=== PATIENT | male | born 1955 | race Caucasian/White ===

== ENCOUNTER → 2019-03-18 10:04 | Outpatient (BNVA) | payer MEDICARE, SELFPAY | PROVIDERS: Family Provider Family Medicine; PCP Family Medicine; Visit Provider Nurse Practitioner Family | DX: E11.9 Type 2 diabetes mellitus without complications (principal); K11.1 Hypertrophy of salivary gland | CPT/HCPCS: 36416; 83036 ==

== ENCOUNTER → 2019-09-21 09:48 | Outpatient (BNVA) | payer MEDICARE, SELFPAY | PROVIDERS: Family Provider Family Medicine; PCP Family Medicine; Visit Provider Nurse Practitioner Family | DX: E11.9 Type 2 diabetes mellitus without complications (principal); J44.9 Chronic obstructive pulmonary disease, unspecified | CPT/HCPCS: 80053; 80061; 83036 ==

== ENCOUNTER → 2019-09-26 09:00 | Outpatient (BNVA) | payer MEDICARE, SELFPAY | PROVIDERS: Family Provider Family Medicine; PCP Family Medicine; Visit Provider Nurse Practitioner Family | DX: E11.9 Type 2 diabetes mellitus without complications (principal); R74.8 Abnormal levels of other serum enzymes | CPT/HCPCS: 82043 ==

== ENCOUNTER → 2019-12-27 14:00 | Outpatient (BNVA) | payer MEDICARE, SELFPAY | PROVIDERS: Family Provider Family Medicine; PCP Family Medicine; Visit Provider Nurse Practitioner Family | DX: R74.8 Abnormal levels of other serum enzymes (principal); E11.9 Type 2 diabetes mellitus without complications | CPT/HCPCS: 80053 ==

== ENCOUNTER → 2020-03-28 13:00 | Outpatient (BNVA) | payer MEDICARE, SELFPAY | PROVIDERS: Family Provider Family Medicine; PCP Nurse Practitioner Family; Visit Provider Nurse Practitioner Family | DX: E11.9 Type 2 diabetes mellitus without complications (principal); E78.5 Hyperlipidemia, unspecified | CPT/HCPCS: 83036 ==

== ENCOUNTER → 2020-06-25 09:06 | Outpatient (BNVA) | payer MEDICARE, SELFPAY | PROVIDERS: Family Provider Family Medicine; PCP Nurse Practitioner Family; Visit Provider Nurse Practitioner Family | DX: E78.5 Hyperlipidemia, unspecified (principal) | CPT/HCPCS: 80053; 80061; 84443 ==

== ENCOUNTER → 2020-09-25 10:15 | Outpatient (BNVA) | payer MEDICARE, SELFPAY | PROVIDERS: Family Provider Family Medicine; PCP Nurse Practitioner Family; Visit Provider Nurse Practitioner Family | DX: E11.9 Type 2 diabetes mellitus without complications (principal) | CPT/HCPCS: 83036 ==

== ENCOUNTER → 2021-02-06 09:06 | Outpatient (BNVA) | payer MEDICARE, SELFPAY | PROVIDERS: Family Provider Family Medicine; PCP Nurse Practitioner Family; Visit Provider Nurse Practitioner Family | DX: E11.9 Type 2 diabetes mellitus without complications (principal); E78.5 Hyperlipidemia, unspecified | CPT/HCPCS: 80053; 80061; 83036 ==

== ENCOUNTER → 2021-04-09 10:16 | Outpatient (BNVA) | payer MEDICARE, SELFPAY | PROVIDERS: Family Provider Family Medicine; PCP Nurse Practitioner Family; Visit Provider Nurse Practitioner Family | DX: Z79.899 Other long term (current) drug therapy (principal) | CPT/HCPCS: 80053 ==

== ENCOUNTER → 2021-08-06 08:55 | Outpatient (BNVA) | payer MEDICARE, SELFPAY | PROVIDERS: Family Provider Family Medicine; PCP Nurse Practitioner Family; Visit Provider Nurse Practitioner Family | DX: E11.9 Type 2 diabetes mellitus without complications (principal) | CPT/HCPCS: 80053; 80061; 82043; 83036 ==

== ENCOUNTER → 2021-08-09 09:33 | Outpatient (BNVA) | payer MEDICARE, SELFPAY | PROVIDERS: Family Provider Family Medicine; PCP Nurse Practitioner Family; Visit Provider Nurse Practitioner Family | DX: E11.9 Type 2 diabetes mellitus without complications (principal) | CPT/HCPCS: 82043 ==

== ENCOUNTER → 2022-02-07 11:48 | Outpatient (BNVA) | payer MEDICARE, SELFPAY | PROVIDERS: Family Provider Family Medicine; PCP Nurse Practitioner Family; Visit Provider Nurse Practitioner Family | DX: E78.5 Hyperlipidemia, unspecified (principal); E11.9 Type 2 diabetes mellitus without complications; L91.8 Other hypertrophic disorders of the skin | CPT/HCPCS: 80053; 80061; 83036 ==

== ENCOUNTER → 2022-08-08 09:57 | Outpatient (BNVA) | payer MEDICARE, SELFPAY | PROVIDERS: Family Provider Family Medicine; PCP Nurse Practitioner Family; Visit Provider Nurse Practitioner Family | DX: E78.5 Hyperlipidemia, unspecified (principal); E11.9 Type 2 diabetes mellitus without complications; L91.8 Other hypertrophic disorders of the skin; Z68.22 Body mass index [BMI] 22.0-22.9, adult | CPT/HCPCS: 80053; 80061; 82043; 83036; 84443 ==

== ENCOUNTER → 2023-02-06 09:51 | Outpatient (BNVA) | payer MEDICARE, SELFPAY | PROVIDERS: Family Provider Family Medicine; PCP Nurse Practitioner Family; Visit Provider Nurse Practitioner Family | DX: E78.5 Hyperlipidemia, unspecified (principal); E11.9 Type 2 diabetes mellitus without complications | CPT/HCPCS: 80053; 80061; 83036 ==

== ENCOUNTER → 2023-08-12 09:47 | Outpatient (BNVA) | payer MEDICARE, SELFPAY | PROVIDERS: Family Provider Family Medicine; PCP Nurse Practitioner Family; Visit Provider Nurse Practitioner Family | DX: E11.9 Type 2 diabetes mellitus without complications (principal); E78.2 Mixed hyperlipidemia | CPT/HCPCS: 80053; 80061; 82043; 83036 ==

== ENCOUNTER 2023-08-24 16:14 | Outpatient (CLI) | payer MEDICARE, MEDICAID, SELFPAY ==
--- NOTE | 2023-08-24 16:25 | CTR_ITS ---
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 Radiation optimization: All CT scans at this facility use at least one of these dose optimization techniques: automated exposure control; mA and/or kV adjustment per patient size (includes targeted exams where dose is matched to clinical indication); or iterative reconstruction. Contrast material: OMNI 350; Contrast volume: 100 ml; Contrast route: INTRAVENOUS (IV); COMPARISON: CR XR shoulder LT min 2V* [id number] 06/01/2018 10:38 AM RADIATION DOSE METRICS: Total DLP (mGy-cm): 131.09 FINDINGS: Paranasal sinuses: Moderate mucosal thickening is present in the right maxillary sinus. Auditory system: A large amount of debris or cerumen is noted in the left external auditory canal. Salivary glands: There is a large complex heterogeneously enhancing solid mass within the inferior right parotid gland, measuring approximately 6.3 x 4.0 x 2.8 cm. The mass extends inferiorly, terminating lateral to the right submandibular gland. 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 There is an 8 mm enhancing nodule or lymph node within the superior right parotid gland. The left parotid gland and both submandibular glands appear within normal limits. Pharynx: Unremarkable. No significant tonsillar enlargement. Prevertebral and retropharyngeal spaces: Unremarkable. Larynx: Unremarkable. Epiglottis is normal. Thyroid: A 7 mm nodule or cyst is noted in the right thyroid. Several other smaller tiny nonspecific thyroid lesions are present. Trachea: Visualized trachea is unremarkable. Lungs: Several small (less than 5 mm) pulmonary nodules are noted in the upper lobes.For patients at low risk (minimal or absent history of smoking and of other known risk factors), no routine follow-up is indicated. For patients at high risk (history of smoking or of other known risk factors), consider optional CT Chest at 12 months. (Reference: Sedrick) Lymph nodes: There is no cervical lymphadenopathy. Vasculature: Calcified and noncalcified plaque is present within the proximal internal carotid arteries. This is causing approximately 50% stenosis of the proximal left ICA. There is no significant stenosis of the right ICA. Bones/joints: Posterior sho and screw fixation is noted at C3 through C7. Decompressive laminectomies are noted at C3 through C6. Soft tissues: No significant soft tissue swelling. CT/CT neck w con* [id number] IMPRESSION: 1. Large heterogeneously enhancing solid right parotid mass. 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 Further evaluation is recommended. 2. Chronic findings as discussed above. COMMENTS: Consistent with the [employer]'s Incidental Findings Committee white paper (J Am Brian Radiol 2015): In patients aged 35 years and older with an incidental thyroid nodule equal to or greater than 1.[address], MRI or extrathyroidal US, further evaluation with dedicated thyroid US is recommended for patients with normal life expectancy and without comorbidities. For smaller nodules without suspicious features, no further evaluation or follow up is recommended. REFERENCES: Sedrick H, et al. Guidelines for Management of Incidental Pulmonary Nodules Detected on CT Images: From the [employer]ner Society 2017. Radiology. 2017;284(1):228-243.
[2023-08-24] MEDS: iohexol 350 mg/mL 500 mL Btl (per mL) IV (17:07)
== END 2023-08-24 16:15 | disposition home or self-care (01) ==
LOC: RAD 16:15
PROVIDERS: Family Provider Family Medicine; PCP Nurse Practitioner Family; Visit Provider Specialist
DX: D37.030 Neoplasm of uncertain behavior of the parotid salivary glands (principal); R22.1 Localized swelling, mass and lump, neck; J34.89 Other specified disorders of nose and nasal sinuses; K11.8 Other diseases of salivary glands; E07.9 Disorder of thyroid, unspecified
CPT/HCPCS: 70491; Q9967

== ENCOUNTER → 2023-09-22 10:30 | Outpatient (BNVA) | payer MEDICARE, MEDICAID, SELFPAY | PROVIDERS: Family Provider Family Medicine; PCP Nurse Practitioner Family; Referring Provider Specialist; Visit Provider Nurse Practitioner Family | DX: Z01.812 Encounter for preprocedural laboratory examination (principal) | CPT/HCPCS: 80053; 85007; 85027 ==

== ENCOUNTER 2023-11-11 17:06 | Observation (INO) | payer MEDICARE, SELFPAY ==
--- NOTE | 2023-10-06 12:57 | SUR.PREOP ---
1255 informed patient that surgery is cancelled for tomorrow regarding patient taking Trulicity and took this medicine yesterday,anesthesia will not approve this pt to have surgery due to trulicity delays gastric emptying.
--- NOTE | 2023-10-06 15:41 | SUR.PREOP ---
[address] beach's office regarding pt not having surgery tomorrow,office staff stated that Marcela was off today and she would tell nurses about the pt's sx being cancelled tand message left on answering machine for nurses
[2023-11-11] VITALS (20 sets, daily range): BP systolic 106–149; BP diastolic 61–83; PULSE 76–98; RESP 14–27; TEMP 36.2–36.6; O2SAT 95–100; BMI 21.7
[2023-11-11 10:55] LABS: Glucose Point of Care 125 mg/dL (70-110)
[2023-11-11] MEDS: sodium chloride 0.9% 1,000 ML 30 ML IV (11:03)
--- NOTE | 2023-11-11 11:43 | W.PM.OPSUD ---
Surgery/Procedure H&P Update DATE OF PROCEDURE: November 11, 2023 DATE H&P PERFORMED: 10/12/23 PRIMARY INDICATION FOR PROCEDURE: Right parotid gland mass PLANNED PROCEDURE: Operation Date: 11/11/23 12:00 Proposed Procedures p Parotidectomy 11003, 05769, 07154, 31351, R22.1, D37.030(Right) - Rodger Crawford MD s Neck Dissection(Right) - Rodger Crawford MD s Fat Graft Abdominal Fat Graft(Left) - Rodger Crawford MD
--- NOTE | 2023-11-11 11:46 | ANES.PREANE2 ---
Pre-Anesthetic Assessment Height/Weight: Height 5 ft 6 in Weight 135 lb O2 Del Method Room Air 11/11/23 10:33 Preop Diagnosis: Enlarged parotid Operation Date: 11/11/23 12:00 Proposed Procedures p Parotidectomy 32035, 49961, 08624, 90562, R22.1, D37.030(Right) - Rodger Crawford MD s Neck Dissection(Right) - Rodger Crawford MD s Fat Graft Abdominal Fat Graft(Left) - Rodger Crawford MD Was Beta Heriberto taken within 24 hours: N/A Was Clonidine taken within 24 hours: N/A Last intake: Intake Last Liquid Date 11/10/23 Last Liquid Time 23:30 Last Solid Date 11/10/23 Last Solid Time 18:00 Social Tobacco and No alcohol Exam alert, oriented x 3 and regular rate & rhythm Diminished breath sounds bilaterally Airway Submandibular: within normal limits Cervical ROM: within normal limits Mallampati: Class II Dentition: other (Edentulous) Anesthetic Plan ASA status: 3 Anesthesia: General Other: No prior issues with anesthesia NPO since yesterday Cervical fusion with limited rotation of the neck COPD, controlled with inhalers. No home oxygen Diabetes, previous insulin use but has since stopped needing it. AM BS 125 Labs 09/22/2023 reviewed Plan for GETA Medications/Allergies Home Medications Medication Instructions Recorded Confirmed Last Taken Type blood-glucose meter (OneTouch #1 ea 02/21/22 08/12/23 Unknown Rx Verio Meter) lancing device with lancets kit #1 ea 02/21/22 08/12/23 Unknown Rx (OneTouch Delica Lancing Device kit) blood sugar diagnostic (OneTouch #100 ea 02/12/23 08/12/23 Unknown Rx Verio test strips) lancets 30 gauge #100 ea 02/12/23 08/12/23 Unknown Rx pen needle, diabetic 32 gauge x #200 ea 05/08/23 08/12/23 Unknown Rx 5/32 (BD Tika 2nd Gen Pen Needle) dulaglutide 0.75 mg/0.5 mL 0.75 mg (0.5 mL) SUBCUT .weekly #2 05/12/23 11/10/23 11/02/23 Rx subcutaneous pen injector mL albuterol sulfate 2.5 mg/3 mL 2.5 mg (3 mL) inhalation Q6H PRN 08/12/23 11/10/23 Unknown Rx (0.083 %) solution for nebulization shortness of breath or wheezing #90 mL albuterol sulfate 90 mcg/actuation 2 puff inhalation Q4H PRN 09/16/23 11/10/23 11/11/23 Rx aerosol inhaler shortness of breath or wheezing #8.5 grams atorvastatin 10 mg tablet 10 mg PO BEDTIME 11/10/23 11/10/23 11/10/23 History gabapentin 600 mg tablet 600 mg PO BID 11/10/23 11/10/23 11/10/23 History Allergies Allergy/AdvReac Type Severity Reaction Status Date / Time amoxicillin Allergy ADR-Itching Verified 11/10/23 11:40 aspirin Allergy ALGY-Anaphy Verified 11/10/23 11:40 laxis Current Medications Generic Name Dose Route Start Last Admin Trade Name Freq PRN Reason Stop Dose Admin Sodium Chloride 1,000 mls @ 30 mls/hr 11/11/23 10:15 11/11/23 11:03 Sodium Chloride 0.9% IV 11/12/23 10:14 30 mls/hr .Q24H OUSMANE Administration PFSH Anesthesia Medical History (Updated 08/12/23 @ 10:28 by Ana Alonso) Enrolled in chronic care management Diabetes Hyperlipidemia Asthma COPD (chronic obstructive pulmonary disease) Type 2 diabetes mellitus without complication Surgical History History of spinal fusion 2012 Social History Smoking and tobacco/nicotine status: current every day tobacco/nicotine user cigarettes Packs smoked per day: 1 Alcohol intake: never Substance/Drug Use: never Data Anesthesia Cardiac Studies: No Data to Display
[2023-11-11] MEDS: clindamycin 600 MG/50 ML PREMIX 100 MG IV ×2 (13:10→20:48)
[2023-11-11] MEDS: clindamycin 600 MG/50 ML PREMIX XX (14:54)
[2023-11-11] MEDS: lidocaine-epi 1% 20 mL INJ INJECTION (14:58)
[2023-11-11] MEDS: EPINEPHrine 1 mg/mL INJ XX (14:59)
[2023-11-11] MEDS: fluorescein 1 mg Strip XX (14:59)
[2023-11-11] MEDS: thrombin 5,000 unit SDV 5000 UNIT XX (15:00)
[2023-11-11] MEDS: mupirocin oint 22 gm 1 APPLIC TOPICAL (15:02)
--- NOTE | 2023-11-11 17:05 | PC.NURSE ---
Patient arrived to ICU 6 at 0200
--- NOTE | 2023-11-11 17:17 | PM.OP ---
Operative Report Date of procedure: November 11, 2023 Pre-op diagnosis: Right parotid gland mass Post-op diagnosis: same Post-op diagnosis: Right parotid gland mass Post-op findings: Same Procedure done: Right superficial parotidectomy Implants: None Specimens removed/disposition: Right parotid mass Pathology: Right superficial parotid gland/mass Surgeon: Rodger Crawford Surgeon: Rodger Crawford MD [employer]: Alfonso Lozano Anesthesia: General Estimated blood loss (mL): 20 IV fluids (mL): 1,900 Urine output (mL): 550 Complications: None Findings: - Large, multilobulated mass replacing the inferior 1/2 of the right superficial parotid gland - Facial nerve intact, but several small buccal branches were splayed out over and were adnerent to the underside/deep aspect of the mass described above - O/W normal right parotid gland/neck Condition: stable Disposition: ICU Brief History: 68 yo wm with a long h/o a large right parotid mass who desires surgical therapy. Procedure: The patient was identified in the preoperative holding area and was taken to the operating room where he was placed on the operating table in the supine position.. Anesthesia was obtained with general endotracheal anesthesia and the table was then turned 180 degrees. The patient's head was turned to the left exposing the right face to the operating surgeon. The [employer] nerve monitoring system was placed on the patient and the procedure was performed under 6-1/2 power loupe magnification. A modified Jim incision was drawn out on the patient's right face and was injected with local anesthesia. The patient was then prepped and draped in the usual sterile fashion.. The incision was then made with a 15 blade and was carried down through subcutaneous tissues using a combination of sharp scissors and Metzenbaum scissors to raise an anteriorly based skin flap. At this point the nerve monitoring hemostat was used to develop a wide front of dissection extending from the area just anterior to the sternocleidomastoid muscle at the inferior portion of the incision all the way up to the preauricular area in the area of the ear canal. This dissection proceeded from superficial to deep exposing the deeper tissues while monitoring for the presence of the facial nerve during the dissection. The greater regular nerve was encountered and was found to enter the parotid gland at the level of the parotid mass and was sacrificed. As the dissection proceeded at its deepest point in the area of the tympanomastoid suture line, the facial nerve was identified both visually and electrically. The facial nerve was then dissected free from the overlying parotid gland and parotid mass while preserving the nerve in place. As the dissection proceeded the mass was rotated anteriorly along with its overlying parotid gland while preserving the branches of the facial nerve intact. Several buccal branches were splayed out over the mass that were adherent to the underside of the mass-these were preserved and protected in place. Eventually the mass was dissected free using a combination of blunt dissection with the nerve monitoring hemostat and micro bipolar forceps. 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 The wound was then irrigated with copious amount normal saline and was inspected for hemostasis which was achieved with bipolar cautery. Gelfoam soaked in thrombin was then placed in the wound overlying the facial nerve and a drain was placed in the wound. The wound was then closed with interrupted 4-0 Monocryl suture subcu and a running 5-0 chromic suture on the skin. The wound was then cleaned and covered with triple antibiotic ointment. The procedure was then terminated and control of the patient was returned to anesthesia where he underwent an uneventful reversal of anesthesia extubation and was taken to the recovery in in stable condition. There were no operative anesthetic complications
[2023-11-11] MEDS: famotidine 20 mg/2 mL INJ IVP (17:32)
[2023-11-11] MEDS: lactated ringers 1,000 ML 125 ML IV (17:33)
[2023-11-11] MEDS: gabapentin 300 mg Capsule 600 MG PO (17:47)
[2023-11-11] MEDS: atorvastatin 40 mg Tablet 10 MG PO (22:17)
[2023-11-12] VITALS (8 sets, daily range): BP systolic 105–144; BP diastolic 55–74; PULSE 79–92; RESP 16–21; O2SAT 96–100
[2023-11-12] MEDS: lactated ringers 1,000 ML 125 ML IV (02:07)
[2023-11-12] MEDS: clindamycin 600 MG/50 ML PREMIX 100 MG IV (04:29)
[2023-11-12] MEDS: famotidine 20 mg/2 mL INJ IVP (04:29)
--- NOTE | 2023-11-12 05:46 | P.PN_ITS ---
Subjective Subjective: 68 yo wm who is POD #1 s/p right superfi cial parotidectomy for a parotid mass. The patient reports minimal pain, and normal facial movement. He is o/w without c/o. Medications: Reviewed: Yes Vitals/I&O/Wt Last Vital Signs Temp 97.7 F 11/11/23 23:59 Pulse 92 11/12/23 04:00 Resp 21 H 11/12/23 04:00 BP 120/66 11/12/23 04:00 Pulse Ox 97 11/12/23 04:00 O2 Del Method Room Air 11/12/23 04:00 11/11/23 11/11/23 11/12/23 14:59 22:59 06:59 Intake Total 100 / 100 1645.833 / 1745.833 654.167 / 2400.000 Output Total 660 / 660 375 / 1035 Balance 100 / 100 985.833 / 1085.833 279.167 / 1365.000 Weight last 48 hrs Weight 63.7 kg Weight 61.235 kg Physical Exam Const: COMMON NORMALS: no acute distress, average body habitus, patient oriented x3 and alert GENERAL APPEARANCE: cooperative and comfortable HENMT: COMMON NORMALS: normocephalic, atraumatic and Normal external nose present HEAD & SCALP: normocephalic and atraumatic FACE & SINUS: normal facial exam and face symmetric NOSE: Normal external nose present Eye: COMMON NORMALS: no scleral icterus Neck/C-Spine: COMMON NORMALS: no lymphadenopathy and supple GENERAL: Yes other (Right facial/neck wound intact without erythema or swelling.) Resp: COMMON NORMALS: normal respiratory effort, No retractions, No use of accessory muscles and clear to auscultation bilaterally AUSCULTATION: clear to auscultation bilaterally Cardio: COMMON NORMALS: regular rate, regular rhythm and No murmurs present (Cardio) RATE: regular rate RHYTHM: regular rhythm GI: COMMON NORMALS: Normal to inspection, nondistended, normoactive bowel sounds present Extremity: COMMON NORMALS: normal to inspection Neuro: COMMON NORMALS: patient oriented x3 SENSORIUM/ORIENTATION: Yes alert Urinary Catheter Management: Bobo: Cath Placed During This Visit: yes Urinary Catheter Date of Insertion: 11/11/23 Urinary Catheter Time of Insertion: 13:20 A&P Assessment and plan (1) Parotid mass: Impression: 68 yo wm POD #1 s/p right superficial parotidectomy for a right parotid mass who is doing well Plan: - Resume preop medications - [place] () tabs: take 1-2 tabs po Q5 hours prn pain, #25, NR - Apply GRABIEL to the right facial wound TID - Keep wound dry until tomorrow - Record AJ drain output - D/C to home - F/U in Dr. Crawford's office on October, - Notify Dr. Crawford for any problems Attestations Medical Necessity Statement*: The patient required overnight observation of his airway Coding Level of Care Code Acute Code for Chg Fwd Diagnoses Parotid mass K11.8
--- NOTE | 2023-11-12 08:30 | PC.NURSE ---
All D/C instructions educated to patient and daughter, Iv dc, transported home by daughter
== END 2023-11-12 08:32 | disposition home or self-care (01) ==
LOC: ICU 19:52
PROVIDERS: Admitting Provider Specialist; Family Provider Family Medicine; PCP Nurse Practitioner Family; Visit Provider Specialist
PROC: (CPT 42410; principal; 2023-11-11 12:00)
DX: D11.0 Benign neoplasm of parotid gland (principal); J44.9 Chronic obstructive pulmonary disease, unspecified; E11.9 Type 2 diabetes mellitus without complications; E78.5 Hyperlipidemia, unspecified
CPT/HCPCS: 42415; 36416; 51702; 82962; 88305; 88313; 88331; G0378; J0171; J1100; J1170; J2250; J2405; J2704; J3010; J3490; J7030; J7120

== ENCOUNTER → 2024-02-09 08:45 | Outpatient (BNVA) | payer MEDICARE, SELFPAY | PROVIDERS: Family Provider Family Medicine; PCP Nurse Practitioner Family; Visit Provider Nurse Practitioner Family | DX: E78.2 Mixed hyperlipidemia (principal); E11.9 Type 2 diabetes mellitus without complications | CPT/HCPCS: 80053; 80061; 83036 ==

== ENCOUNTER → 2024-05-11 11:14 | Outpatient (BNVA) | payer MEDICARE, SELFPAY | PROVIDERS: Family Provider Family Medicine; PCP Nurse Practitioner Family; Visit Provider Nurse Practitioner Family | DX: E11.9 Type 2 diabetes mellitus without complications (principal) | CPT/HCPCS: 83036 ==

== ENCOUNTER → 2024-08-10 08:30 | Outpatient (BNVA) | payer MEDICARE, SELFPAY | PROVIDERS: Family Provider Family Medicine; PCP Nurse Practitioner Family; Visit Provider Nurse Practitioner Family | DX: E11.9 Type 2 diabetes mellitus without complications (principal); E78.2 Mixed hyperlipidemia | CPT/HCPCS: 80053; 80061; 83036 ==

== ENCOUNTER → 2024-11-09 08:30 | Outpatient (BNVA) | payer MEDICARE, SELFPAY | PROVIDERS: Family Provider Family Medicine; PCP Nurse Practitioner Family; Visit Provider Nurse Practitioner Family | DX: E11.9 Type 2 diabetes mellitus without complications (principal) | CPT/HCPCS: 83036 ==

== ENCOUNTER → 2025-02-08 09:00 | Outpatient (BNVA) | payer MEDICARE, SELFPAY | PROVIDERS: Family Provider Family Medicine; PCP Nurse Practitioner Family; Visit Provider Nurse Practitioner Family | DX: E11.9 Type 2 diabetes mellitus without complications (principal); E78.2 Mixed hyperlipidemia | CPT/HCPCS: 80053; 80061; 83036 ==